=== PATIENT | male | born 2000 | race Hispanic/Latino ===

== ENCOUNTER 2025-07-27 17:30 | Emergency (ER) | payer BC ==
[~2025-07-27] VITALS: Ht 170.2 cm; Wt 121.5 kg
[2025-07-27 17:51] LABS: BASOPHILS 0.6 % (0.2-1.2); EOSINOPHILS 1.3 % (0.8-7.0); LYMPHOCYTES 22.2 % (21.8-53.1); MCH 29.2 PG (25.7-32.2); MCHC 33.8 g/dL (32.3-36.5); MCV 86.5 fL (79.0-92.2); MONOCYTES 7.5 % (5.3-12.2); NEUTROPHILS 68.2 % (34.0-67.9); RBC 5.61 M/uL (4.63-6.08)
[2025-07-27 18:03] LABS: BLOOD/HGB, URINE NEGATIVE (Negative); KETONE, URINE SMALL (Negative); LEUK ESTERASE, URINE NEGATIVE (negative); NITRITE, URINE NEGATIVE (negative)
[2025-07-27 18:19] LABS: ALT (SGPT) 46.0 U/L (14-59); AST (SGOT) 20.0 U/L (15-37); GLOMERULAR FILTRATION RATE,EST 90.0 mL/min (>60); PROTEIN, TOTAL 9.4 g/dL (6.4-8.2); UREA NITROGEN 16.0 mg/dL (7-18)
[2025-07-27 19:20] VITALS: BP 104/55
[2025-07-27] MEDS ORDERED: PROTONIX40 MG PO (20:13)
[2025-07-27] MEDS ORDERED: CARAFATE1 GM PO (20:13)
[2025-07-27] MEDS ORDERED: ONDANSETRON 4 MG HOME.PACK SL ONE (20:15)
== END 2025-07-27 20:26 | disposition home or self-care (01) ==
LOC: ED 17:30
PROVIDERS: Emergency Medicine
DX: K29.70 Gastritis, unspecified, without bleeding (principal)
CPT/HCPCS: 36415; 76705; 80053; 81003; 83690; 85025; 99284; A9270